=== PATIENT | male | born 1970 | race Caucasian/White ===

== ENCOUNTER 2019-01-13 05:36 | Inpatient (IN) | payer OTHER ==
[2019-01-13] VITALS (25 sets, daily range): BP systolic 98–180; BP diastolic 60–98; PULSE 65–112; RESP 11–21; Ht 188 cm; Wt 119.0 kg
[~2019-01-13] VITALS: Ht 188 cm; Wt 119.0 kg
[2019-01-13] MEDS ORDERED: VERAPAMIL 5 MG INJ ONE (06:11)
[2019-01-13] MEDS ORDERED: NITROGLYCERIN (IC) 100 MCG/ML INJ ONE (06:14)
[2019-01-13] MEDS ORDERED: TEMA30CA PO (06:55)
[2019-01-13] MEDS ORDERED: GELATIN SIZE 100 SPONGE ONE (06:55)
[2019-01-13] MEDS ORDERED: BUPIVACAINE 0.5%/EPI (SDV) 30 ML INJ ONE ×2 (06:55→10:53)
[2019-01-13] MEDS ORDERED: THROMBIN (BOVINE) 5,000 UNIT VIAL TP ONE (06:55)
[2019-01-13] MEDS ORDERED: CEFAZOLIN 1 GM INJ ONE ×2 (06:55→08:02)
[2019-01-13] MEDS ORDERED: HEPARIN 1000 UNITS/ML 10 ML INJ ONE (06:56)
[2019-01-13] MEDS ORDERED: DULO60CA59 PO (06:56)
[2019-01-13] MEDS ORDERED: SUMA50TA3 PO (06:56)
[2019-01-13] MEDS ORDERED: MIRT15TA5 PO (06:57)
[2019-01-13] MEDS ORDERED: HYDR-3980 PO (06:57)
[2019-01-13] MEDS ORDERED: BUTA1CAP38 PO (06:58)
[2019-01-13] MEDS ORDERED: TRAZ-111 PO (06:58)
[2019-01-13] MEDS ORDERED: DICL75TA2 PO (06:59)
[2019-01-13] MEDS ORDERED: PROPOFOL 200 MG INJ ONE (07:00)
--- NOTE | 2019-01-13 07:19 | PREAC ---
Date/Time of Note Date/Time of Note DATE: 01/13/19 TIME: 07:16 Anesthesia Eval and Record Evaluation Time Pre-Procedure Interview DATE: 01/13/19 TIME: 07:16 Age 48 Sex male NPO: 8 hrs Preoperative diagnosis L5 S1 spinal stenosis Planned procedure L5 S1 anterior and post instrumentation Past Medical History Past Medical History: Includes GI: Obesity Psych: Depression Surgery & Anesthesia Issues No known issue Meds Anticoagulation: No Beta Leon within 24 hr: No Reason Beta Leon not given: Pt. not on B-Leon Reported Medications Diclofenac Sodium* (Diclofenac Sodium*) 75 Mg Tablet.dr, 75 MG PO BID, #60 TAB 01/13/19 Trazodone Hcl* (Trazodone Hcl*) 50 Mg Tablet, 50 MG PO QHS, #30 TAB 01/13/19 Fpmdlrykaw-Uftoxziamunbu-Bbbhtiya* (Fioricet*) 50-300-40 Mg Capsule, 1 CAP PO Q4H PRN for HEADACHE, CAP 01/13/19 Mirtazapine* (Mirtazapine*) 15 Mg Tablet, 15 MG PO HS, TAB 01/13/19 Hydrocodone/Acetaminophen (Otis 10-325 Tablet) 1 Each Tablet, 1 EACH PO Q6 PRN for PAIN, TAB 01/13/19 Sumatriptan Succinate* (Sumatriptan Succinate*) 50 Mg Tablet, 50 MG PO BID PRN for MIGRAINE HEADACHE, TAB May repeat after 2 hours if needed; MAX 200 mg/24 hours 01/13/19 Duloxetine Hcl* (Duloxetine Hcl*) 60 Mg Capsule.dr, 60 MG PO DAILY, #30 CAP 01/13/19 Temazepam* (Temazepam*) 30 Mg Capsule, 30 MG PO HS PRN for INSOMNIA, CAP 01/13/19 Meds reviewed: Yes Allergies Coded Allergies: No Known Allergy (Unverified , 01/13/19) Allergies Reviewed: Yes Labs/Studies Labs Reviewed: Reviewed by anesthesiologist Blood Bank Test 01/13/19 00:00 01/13/19 06:10 Blood Product Summary Counts Blood Type O POSITIVE test: N/A Studies: ECG (sr), CXR (nl) Pre-procedure Exam Last vitals Vital Signs Date Temp Pulse Resp B/P (MAP) Pulse Ox O2 O2 Flow FiO2 Time Delivery Rate 01/13/19 98.4 65 18 111/70 98 06:39 (84) Airway: Adequate mouth opening Mallampati: Mallampati II Teeth: Normal Lung: Normal Heart: Normal ASA Physical Status ASA physical status: 1 Emergency: None Planned Anesthetic General/MAC: ETT Nerve block: TAP (bilateral) Planned Pain Management Parenteral pain med Pre-operative Attestations Prior to commencing anesthesia and surgery, the patient was re-evaluated, there was verification of: *The patient's identity *The results of appropriate recent lab work and preoperative vital signs *The above evaluation not changing prior to induction *Anesthetic plan, risk benefits, alternative and complications discussed with patient/family; questions answered; patient/family understands, accepts and wishes to proceed. NATALYA SANTORO MD Jan 13, 2019 07:19
--- NOTE | 2019-01-13 07:20 | HPN ---
Date/Time of Note Date/Time of Note DATE: 01/13/19 TIME: 07:20 Interval H&P Admission Note Pt. seen H&P reviewed: No system changes VIRGINIA TRAORE MD Jan 13, 2019 07:20
[2019-01-13] MEDS ORDERED: ONDANSETRON 4 MG INJ ONE (07:26)
[2019-01-13] MEDS ORDERED: MIDAZOLAM 1 MG/ML 2 ML INJ ONE (07:26)
[2019-01-13] MEDS ORDERED: PROPOFOL 20 ML ONE (07:26)
[2019-01-13] MEDS ORDERED: METOCLOPRAMIDE 10 MG INJ ONE (07:26)
[2019-01-13] MEDS ORDERED: ROCURONIUM 50 MG INJ ONE ×2 (07:26→08:15)
[2019-01-13] MEDS ORDERED: MEPERIDINE 25 MG INJ IV PRN (07:30)
[2019-01-13] MEDS ORDERED: ONDANSETRON 4 MG INJ IV PRN ×3 (07:30→13:30)
[2019-01-13] MEDS ORDERED: HYDROmorphONE 1 MG/5 ML IV SYRINGE IV PRN ×5 (07:30→13:30)
[2019-01-13] MEDS ORDERED: FENTAnyl 50 MCG/ML VIAL IV PRN ×3 (07:30)
[2019-01-13] MEDS ORDERED: DIPHENHYDRAMINE 50 MG INJ IV PRN (07:30)
[2019-01-13] MEDS ORDERED: FENTAnyl 50 MCG/ML VIAL ONE ×2 (07:33→11:00)
[2019-01-13] MEDS ORDERED: DEXAMETHASONE 4 MG/ML 5 ML INJ ONE (07:46)
[2019-01-13] MEDS ORDERED: HYDROmorphONE 2 MG/ML SYG ONE (08:28)
[2019-01-13] MEDS ORDERED: ROPIVACAINE 0.5 % 30 ML VIAL ONE (09:33)
--- NOTE | 2019-01-13 10:13 | OPR ---
DATE OF OPERATION: 01/13/2019 PREOPERATIVE DIAGNOSIS: Degenerative disk disease, lumbosacral spine. POSTOPERATIVE DIAGNOSIS: Degenerative disk disease, lumbosacral spine. OPERATION PERFORMED: Anterior retroperitoneal exposure interbody fusion lumbosacral spine, L5-S1. SURGEON: Albertina Gomez MD. CO-SURGEON: Dr. Traore. ESTIMATED BLOOD LOSS: Dr. Traore . INFORMED CONSENT: Risks, benefits, complications, alternative therapies explained to the patient, co nsent obtained. Risks and benefits that were explained to the patient included but not limited to bl eeding, infection, damage to bowel, damage to ureter, wound infection, wound dehiscence, DVT, PE, los s of limb, loss of life, DVT, need for further surgeries, retrograde ejaculation, sexual dysfunction, high-risk nature of the operation fully explained and stressed to the patient. All questions answer ed. OPERATIVE TECHNIQUE: Patient was placed in supine position, prepped and draped in usual sterile fash ion. Timeout was called and antibiotics were given. I made an 8 cm incision in the left lower quadr ant. Incision was taken down to subcutaneous tissue which was then opened using electrocautery. Lef t anterior rectus sheath was opened in the direction of the wound. The retroperitoneal space was ent ered. I applied a Bookwalter retractor, retracting the bowel contents to the right, left rectus musc le to the left. I dissected the left common iliac artery and vein, external iliac artery and vein, m iddle sacral vessels ligated using titanium clips. Exposure for L5-S1 was obtained between the right and left common iliac artery and vein. We proceeded with diskectomy and placement of the new cage. Please refer to Dr. Traore's dictations for the details of that operation. After all the x-rays were satisfactory read by Dr. Traore, needle counts and sponge count was correct. The wound was i rrigated using antibiotic solution. The anterior rectus sheath was closed using a #1 Vicryl suture i n a running fashion. The wound was irrigated again and closed in 2 layers of 2-0 Vicryl suture for s ubcutaneous and Steri-Strips for the skin. The patient tolerated the procedure well. Dictated By: ALBERTINA GOMEZ MD FM/NTS Conf#: [id number] [facility]#: [id number] CC: VIRGINIA TRAORE MD;*[facility]*
--- NOTE | 2019-01-13 12:33 | OPR ---
Date/Time of Note Date/Time of Note DATE: 01/13/19 TIME: 12:25 Operative Report Free Text/Dictation DATE OF OPERATION: 01/13/2019 PREOPERATIVE DIAGNOSES: 1. L5-S1 Isthmic Spondylolisthesis with severe bilateral foraminal stenosis and L5 radiculopathy 2. Obesity BMI 34 kg/m2 POSTOPERATIVE DIAGNOSES: 1. L5-S1 Isthmic Spondylolisthesis with severe bilateral foraminal stenosis and L5 radiculopathy 2. Obesity BMI 34 kg/m2 OPERATION PERFORMED: 1. Anterior lumbar interbody fusion via retroperitoneal approach L5-S1 2. Placement of anterior interbody device L5-S1 3. Placement of posterior spinal segmental instrumentation L5-S1 4. Posterior spinal fusion L5-S1 5. Use of morselized allograft bone and small BMP 6. Interpretation of neuromonitoring INSTRUMENTATION: 1. Synfix Amadou Stand alone PEEK Cage 13.5mm height x 36mm Widthx 31 mmAP / 14 degrees lordosis 2. 4.0mm self drilling screws 25mm length x 4 3. Small BMP with use of morselized allograft bone 4. NuVasive Reline MAS system percutaneous screws: L5 6.5 x 45mm x 2; S1-6.5 x 40mm x 2 5. 45mm rods x 2; set screws x 4 ANAESTHESIA: General Endotracheal ESTIMATED BLOOD LOSS: 250 mL COMPLICATIONS: None SURGEON: Virginia Traore MD VASCULAR ACCESS SURGEON: Zach Medina MD SURGICAL INDICATION: The patient is a 48 year-old male who presents with an incr easing history of back and leg pain with weakness. The patient was found to have an unstable spondylolisthesis at L5-S1 with associated stenosis. The patient had failed conservative treatments. Risks, benefits and alternatives to an anterior and posterior spinal fusion with instrumentation were explained to the patient including but not exclusive of bleeding, infection, visceral injury, nerve injury, nonunion, instrumentation failure, lack of symptom relief, myocardial infarction, stroke, and pulmonary embolism, and they wished to proceed. PROCEDURE IN DETAIL: The patient was identified in the preoperative area and taken to the operating room. Rapid induction of general endotracheal anesthesia was performed. A time out was held. Patient was given 2 g of cefazolin for prophylaxis. The patient was positioned in the supine position on the operative table. All bony prominences were well padded. The patient's abdomen and left flank were prepped and draped in the usual sterile fashion. A transverse skin incision was made at the L5-S1 level by our vascular surgeon Dr. Medina. After the exposure was completed, I performed a L5-S1 diskectomy. The disc was incised using a sharp 15 mm blade. I then used a dang elevator to loosen the disk material from the superior and inferior endplates. I then used a rongeur to remove the disc material and a series of curved and straight curettes to evacuate the disc space. I also used a series of pituitaries and kerrisons to ensure appropriate end plate preparation. Attention was placed to ensure removal of disk material to bleeding endplates without violation of the endplate. I then used the trial rasps to prepare and size the disc space and was able to place a 13.5 mm spacer with 14 degrees of lordosis. To ensure appropriate sizing of the inplant, I checked for fit and placement under C arm control and I felt the 14 degree lordotic 13.5 mm cage gained good lordosis and muslim of disc height and was an appropriate fit. I also ensured appropriate reduction of the spondylolisthesis. I then inserted the Synfix PEEK 13.5mm cage after the trail. This cage was filled with a small BMP and morselized bone allograft. Four locking screws (4.0 x 25mm) were then placed using the guide under fluoroscopy . Additional morselized allograft was placed around and anterior to the cage in the disc space. The wound was irrigated. X-rays were taken to check for instruments. The wound was then closed by our vascular access surgeon in standard technique. The posterior rectus sheath and anterior rectus sheath were both repaired. Sterile dressing was then placed. Due to the patients morbid obesity (BMI 34 kg/m2) anterior and posterior exposure for this patient took an additional 45 minutes. Attention was then turned toward placement of posterior spinal segmental instrumentation at L5-S1 after the patient was flipped carefully to the prone position. All bony prominences were well padded. The patient's lumbar spine was then prepped and draped in sterile fashion. Using intraoperative fluoroscopy, the pedicles were identified at each level. Care was taken to alter the fluoroscopic view to have a true AP and lateral at each level. Jamshidi needles were then passed down to the lateral aspect of the pedicles through stab incisions. The Jamshidi needles were malleted into the pedicles. These were also performed under EMG guidance. Care was taken to ensure that the needles did not pass the medial wall of the pedicle on the AP view prior to checking that the needle was past the posterior wall of the vertebral body. The needles were then malleted further into the vertebral bodies themselves. Guidewires were passed through the needles and the needles were removed. Taps were applied over the guidewires. Screws were then placed bilaterally into the vertebral bodies. AP and lateral views confirmed appropriate placement of the instrumentation. Attention was turned toward the posterior spinal fusion at L5-S1. Rods were selected of the appropriate length and placed into the screw heads. End caps were applied and final tightening was performed using a [id number] wrench. The exposed the facet joints were decorticated. A small remaining amount of allograft was placed into the facet joints to facilitate the posterior fusion. The wound was irrigated copiously using normal saline. The fascia was then closed using 1 Vicryl in interrupted fashion. Subcutaneous tissue was closed using 2-0 Vicryl in interrupted fashion. Skin was closed using a running 4-0 Monocryl stitch. The wounds were dressed using Dermabond, sterile gauze and Tegaderm. The patient was returned to the supine position. The patient was extubated immediately postoperatively and taken to the recovery room in stable condition. Patient tolerated the procedure well and left the operating room in stable condition. Procedure Date: Jan 13, 2019 Preoperative Diagnosis 1. L5-S1 Isthmic Spondylolisthesis with severe bilateral foraminal stenosis and L5 radiculopathy 2. Obesity BMI 34 kg/m2 Postoperative Diagnosis 1. L5-S1 Isthmic Spondylolisthesis with severe bilateral foraminal stenosis and L5 radiculopathy 2. Obesity BMI 34 kg/m2 Operation/Procedure Performed 1. Anterior lumbar interbody fusion via retroperitoneal approach L5-S1 2. Placement of anterior interbody device L5-S1 3. Placement of posterior spinal segmental instrumentation L5-S1 4. Posterior spinal fusion L5-S1 5. Use of morselized allograft bone and small BMP 6. Interpretation of neuromonitoring Surgeon see signature line Metal Coater Operator Anterior approach: Zach Reyes MD Anesthesia Type: general Estimated Blood Loss: 200 - 250 ml's Transfusion none Specimen none Grafts/Implants 1. Synfix Amadou Stand alone PEEK Cage 13.5mm height x 36mm Widthx 31 mmAP / 14 degrees lordosis 2. 4.0mm self drilling screws 25mm length x 4 3. Small BMP with use of morselized allograft bone 4. NuVasive Reline MAS system percutaneous screws: L5 6.5 x 45mm x 2; S1-6.5 x 40mm x 2 5. 45mm rods x 2; set screws x 4 Complications none Pt Condition Post Procedure: stable Disposition: PACU Procedure Description PROCEDURE IN DETAIL: The patient was identified in the preoperative area and taken to the operating room. Rapid induction of general endotracheal anesthesia was performed. A time out was held. Patient was given 2 g of cefazolin for prophylaxis. The patient was positioned in the supine position on the operative table. All bony prominences were well padded. The patient's abdomen and left flank were prepped and draped in the usual sterile fashion. A transverse skin incision was made at the L5-S1 level by our vascular surgeon Dr. Medina. After the exposure was completed, I performed a L5-S1 diskectomy. The disc was incised using a sharp 15 mm blade. I then used a dang elevator to loosen the disk material from the superior and inferior endplates. I then used a rongeur to remove the disc material and a series of curved and straight curettes to evacuate the disc space. I also used a series of pituitaries and kerrisons to ensure appropriate end plate preparation. Attention was placed to ensure removal of disk material to bleeding endplates without violation of the endplate. I then used the trial rasps to prepare and size the disc space and was able to place a 13.5 mm spacer with 14 degrees of lordosis. To ensure appropriate sizing of the inplant, I checked for fit and placement under C arm control and I felt the 14 degree lordotic 13.5 mm cage gained good lordosis and muslim of disc height and was an appropriate fit. I also ensured appropriate reduction of the spondylolisthesis. I then inserted the Synfix PEEK 13.5mm cage after the trail. This cage was filled with a small BMP and morselized bone allograft. Four locking screws (4.0 x 25mm) were then placed using the guide under fluoroscopy . Additional morselized allograft was placed around and anterior to the cage in the disc space. The wound was irrigated. X-rays were taken to check for instruments. The wound was then closed by our vascular access surgeon in standard technique. The posterior rectus sheath and anterior rectus sheath were both repaired. Sterile dressing was then placed. Due to the patients morbid obesity (BMI 34 kg/m2) anterior and posterior exposure for this patient took an additional 45 minutes. Attention was then turned toward placement of posterior spinal segmental instrumentation at L5-S1 after the patient was flipped carefully to the prone position. All bony prominences were well padded. The patient's lumbar spine was then prepped and draped in sterile fashion. Using intraoperative fluoroscopy, the pedicles were identified at each level. Care was taken to alter the fluoroscopic view to have a true AP and lateral at each level. Jamshidi needles were then passed down to the lateral aspect of the pedicles through stab incisions. The Jamshidi needles were malleted into the pedicles. These were also performed under EMG guidance. Care was taken to ensure that the needles did not pass the medial wall of the pedicle on the AP view prior to checking that the needle was past the posterior wall of the vertebral body. The needles were then malleted further into the vertebral bodies themselves. Guidewires were passed through the needles and the needles were removed. Taps were applied over the guidewires. Screws were then placed bilaterally into the vertebral bodies. AP and lateral views confirmed appropriate placement of the instrumentation. Attention was turned toward the posterior spinal fusion at L5-S1. Rods were selected of the appropriate length and placed into the screw heads. End caps were applied and final tightening was performed using a [id number] wrench. The exposed the facet joints were decorticated. A small remaining amount of allograft was placed into the facet joints to facilitate the posterior fu nat. The wound was irrigated copiously using normal saline. The fascia was then closed using 1 Vicryl in interrupted fashion. Subcutaneous tissue was closed using 2-0 Vicryl in interrupted fashion. Skin was closed using a running 4-0 Monocryl stitch. The wounds were dressed using Dermabond, sterile gauze and Tegaderm. The patient was returned to the supine position. The patient was extubated immediately postoperatively and taken to the recovery room in stable condition. Patient tolerated the procedure well and left the operating room in stable condition. VIRGINIA TRAORE MD Jan 13, 2019 12:33
[2019-01-13] MEDS ORDERED: SUCCINYLCHOLINE CHLORIDE 100 MG/5 ML SYG IV ONE (12:45)
[2019-01-13] MEDS ORDERED: ACETAMINOPHEN 325 MG TAB PO PRN (13:00)
[2019-01-13] MEDS ORDERED: NALOXONE (0.4 MG/ML) INJ IV PRN (13:00)
[2019-01-13] MEDS ORDERED: NACL 0.9% 3 ML SYG IV SCH (13:00)
[2019-01-13] MEDS ORDERED: PROCHLORPERAZINE 10 MG TAB PO PRN (13:00)
[2019-01-13] MEDS ORDERED: AL HYDROX/MG HYDROX/SIMETH 30 ML CUP PO PRN (13:00)
[2019-01-13] MEDS ORDERED: HYDROCODONE/APAP (5/325) TAB PO PRN (13:00)
[2019-01-13] MEDS: HYDROmorphONE 0.2 MG/ML PCA IV SCH ×2 (13:18→19:45)
[2019-01-13] MEDS ORDERED: KETOROLAC 15 MG INJ IV PRN (13:30)
[2019-01-13] MEDS: CEFAZOLIN 1 GM/50 ML (PMX) 50 ML IVPB SCH ×2 (17:53→23:48)
--- NOTE | 2019-01-13 18:22 | CONS ---
Assessment/Plan Assessment/Plan Assessment/Plan (Daily) Consult dict Post op lumbar back surg with hx mood disorder prior knee surg and related dvt (will rev this with him again tombaldomero). Consultation Date/Type/Reason Admit Date/Time Jan 13, 2019 at 05:36 Date/Time of Note DATE: 01/13/19 TIME: 18:21 Past Medical History Home Meds Reported Medications Diclofenac Sodium* (Diclofenac Sodium*) 75 Mg Tablet., 75 MG PO BID, #60 TAB 01/13/19 Trazodone Hcl* (Trazodone Hcl*) 50 Mg Tablet, 50 MG PO QHS, #30 TAB 01/13/19 Fzejmyaxwc-Rswponghksial-Qdegjpzd* (Fioricet*) 50-300-40 Mg Capsule, 1 CAP PO Q4H PRN for HEADACHE, CAP 01/13/19 Mirtazapine* (Mirtazapine*) 15 Mg Tablet, 15 MG PO HS, TAB 01/13/19 Hydrocodone/Acetaminophen ([place] 10-325 Tablet) 1 Each Tablet, 1 EACH PO Q6 PRN for PAIN, TAB 01/13/19 Sumatriptan Succinate* (Sumatriptan Succinate*) 50 Mg Tablet, 50 MG PO BID PRN for MIGRAINE HEADACHE, TAB May repeat after 2 hours if needed; MAX 200 mg/24 hours 01/13/19 Duloxetine Hcl* (Duloxetine Hcl*) 60 Mg Capsule.dr, 60 MG PO DAILY, #30 CAP 01/13/19 Temazepam* (Temazepam*) 30 Mg Capsule, 30 MG PO HS PRN for INSOMNIA, CAP 01/13/19 Medications Current Medications Hydromorphone HCl (Dilaudid) 0.2 mg PACU PRN IV MILD PAIN 1-3; Start 01/13/19 at 07:30; Stop 01/13/19 at 19:00 Hydromorphone HCl (Dilaudid) 0.4 mg PACU PRN IV MOD PAIN 4-6; Start 01/13/19 at 07:30; Stop 01/13/19 at 19:00 Hydromorphone HCl (Dilaudid) 0.6 mg PACU PRN IV SEVERE PAIN 7-10; Start 01/13/19 at 07:30; Stop 01/13/19 at 19:00 Fentanyl (Sublimaze) 25 mcg PACU ORDER PRN IV MILD PAIN 1-3; Start 01/13/19 at 07:30; Stop 01/13/19 at 19:00 Fentanyl (Sublimaze) 50 mcg PACU ORDER PRN IV MOD PAIN 4-6 Last administered on 01/13/19at 13:10; Admin Dose 50 MCG; Start 01/13/19 at 07:30; Stop 01/13/19 at 19:00 Fentanyl (Sublimaze) 75 mcg PACU ORDER PRN IV SEVERE PAIN 7-10; Start 01/13/19 at 07:30; Stop 01/13/19 at 19:00 Ondansetron HCl (Zofran Inj) 4 mg PACU ORDER PRN IV NAUSEA/VOMITING Last administered on 01/13/19at 13:10; Admin Dose 4 MG; Start 01/13/19 at 07:30; Stop 01/13/19 at 19:00 Meperidine HCl (Demerol) 25 mg PACU ORDER PRN IV .RIGORS; Start 01/13/19 at 07:30; Stop 01/13/19 at 19:00 Diphenhydramine HCl (Benadryl) 25 mg PACU ORDER PRN IV .PRURITUS; Start 01/13/19 at 07:30; Stop 01/13/19 at 19:00 Acetaminophen/ Hydrocodone Bitart ([place] (5/325)) 1 tab Q4H PRN PO .PAIN 1-5; Start 01/13/19 at 13:00 Acetaminophen/ Hydrocodone Bitart ([place] (5/325)) 2 tab Q4H PRN PO .PAIN 6-10; Start 01/13/19 at 13:00 Cefazolin Sodium 50 ml @ 100 mls/hr Q6 IVPB Last administered on 01/13/19at 17:53; Admin Dose 100 MLS/HR; Start 01/13/19 at 18:00; Stop 01/14/19 at 12:29 Prochlorperazine (Compazine) 10 mg Q4H PRN PO NAUSEA/VOMITING; Start 01/13/19 at 13:00 Ondansetron HCl (Zofran Inj) 4 mg Q6H PRN IV NAUSEA/VOMITING; Start 01/13/19 at 13:00 Al Hydrox/Mg Hydrox/Simethicone (Mag-Al Plus) 15 ml Q4H PRN PO .CONSTIPATION; Start 01/13/19 at 13:00 Docusate Sodium (Colace) 100 mg BID PO ; Start 01/14/19 at 09:00 Acetaminophen (Tylenol Tab) 650 mg Q4H PRN PO TEMP GREATER THAN 101F OR CLARKE; Start 01/13/19 at 13:00 IV Flush (NS 3 ml) 3 ml PER PROTOCOL IV ; Start 01/13/19 at 13:00 Hydromorphone HCl (Dilaudid HOUSEKEEPING LEAD) Q4PCA IV Last administered on 01/13/19at 13:18; Admin Dose 6 MG; Start 01/13/19 at 13:00 Naloxone HCl (Narcan) 0.2 mg Q2M PRN IV RR 8 BREATHS/MIN OR LESS; Start 01/13/19 at 13:00 Hydromorphone HCl (Dilaudid) 0.2 mg PACU PRN IV MILD PAIN 1-3; Start 01/13/19 at 13:30; Stop 01/13/19 at 20:00 Hydromorphone HCl (Dilaudid) 0.4 mg PACU PRN IV MOD PAIN 4-6; Start 01/13/19 at 13:30; Stop 01/13/19 at 20:00 Ketorolac Tromethamine (Toradol) 15 mg PACU ORDER PRN IV FOR PAIN AFTER IV NARCOTIC MED; Start 01/13/19 at 13:30; Stop 01/13/19 at 20:00 Ondansetron HCl (Zofran Inj) 4 mg PACU ORDER PRN IV NAUSEA/VOMITING; Start 01/13/19 at 13:30; Stop 01/13/19 at 20:00 Acetaminophen/ Butalbital/ Caffeine (Fioricet) 1 tab Q4H PRN PO HEADACHE; Start 01/13/19 at 18:30; Status UNV Duloxetine HCl (Cymbalta) 60 mg DAILY PO ; Start 01/14/19 at 09:00; Status UNV Mirtazapine (Remeron) 15 mg HS PO ; Start 01/13/19 at 21:00; Status UNV Sumatriptan Succinate (Imitrex) 50 mg BID PRN PO MIGRAINE HEADACHE; Start 01/13/19 at 18:30; Status UNV Trazodone HCl (Desyrel) 50 mg QHS PO ; Start 01/13/19 at 21:00; Status UNV Allergies: Coded Allergies: No Known Allergy (Unverified , 01/13/19) Social History Smoking Status: Never smoker Exam/Review of Systems Exam Vitals Vital Signs Date Temp Pulse Resp B/P (MAP) Pulse Ox O2 O2 Flow FiO2 Time Delivery Rate 01/13/19 98.3 102 16 112/72 99 Room Air 17:39 (85) 01/13/19 2.0 15:15 Medications Medication Current Medications Hydromorphone HCl (Dilaudid) 0.2 mg PACU PRN IV MILD PAIN 1-3; Start 01/13/19 at 07:30; Stop 01/13/19 at 19:00 Hydromorphone HCl (Dilaudid) 0.4 mg PACU PRN IV MOD PAIN 4-6; Start 01/13/19 at 07:30; Stop 01/13/19 at 19:00 Hydromorphone HCl (Dilaudid) 0.6 mg PACU PRN IV SEVERE PAIN 7-10; Start 01/13/19 at 07:30; Stop 01/13/19 at 19:00 Fentanyl (Sublimaze) 25 mcg PACU ORDER PRN IV MILD PAIN 1-3; Start 01/13/19 at 07:30; Stop 01/13/19 at 19:00 Fentanyl (Sublimaze) 50 mcg PACU ORDER PRN IV MOD PAIN 4-6 Last administered on 01/13/19at 13:10; Admin Dose 50 MCG; Start 01/13/19 at 07:30; Stop 01/13/19 at 19:00 Fentanyl (Sublimaze) 75 mcg PACU ORDER PRN IV SEVERE PAIN 7-10; Start 01/13/19 at 07:30; Stop 01/13/19 at 19:00 Ondansetron HCl (Zofran Inj) 4 mg PACU ORDER PRN IV NAUSEA/VOMITING Last admin istered on 01/13/19at 13:10; Admin Dose 4 MG; Start 01/13/19 at 07:30; Stop 01/13/19 at 19:00 Meperidine HCl (Demerol) 25 mg PACU ORDER PRN IV .RIGORS; Start 01/13/19 at 07:30; Stop 01/13/19 at 19:00 Diphenhydramine HCl (Benadryl) 25 mg PACU ORDER PRN IV .PRURITUS; Start 01/13/19 at 07:30; Stop 01/13/19 at 19:00 Acetaminophen/ Hydrocodone Bitart ([place] (5/325)) 1 tab Q4H PRN PO .PAIN 1-5; Start 01/13/19 at 13:00 Acetaminophen/ Hydrocodone Bitart ([place] (5/325)) 2 tab Q4H PRN PO .PAIN 6-10; Start 01/13/19 at 13:00 Cefazolin Sodium 50 ml @ 100 mls/hr Q6 IVPB Last administered on 01/13/19at 17:53; Admin Dose 100 MLS/HR; Start 01/13/19 at 18:00; Stop 01/14/19 at 12:29 Prochlorperazine (Compazine) 10 mg Q4H PRN PO NAUSEA/VOMITING; Start 01/13/19 at 13:00 Ondansetron HCl (Zofran Inj) 4 mg Q6H PRN IV NAUSEA/VOMITING; Start 01/13/19 at 13:00 Al Hydrox/Mg Hydrox/Simethicone (Mag-Al Plus) 15 ml Q4H PRN PO .CONSTIPATION; Start 01/13/19 at 13:00 Docusate Sodium (Colace) 100 mg BID PO ; Start 01/14/19 at 09:00 Acetaminophen (Tylenol Tab) 650 mg Q4H PRN PO TEMP GREATER THAN 101F OR CLARKE; Start 01/13/19 at 13:00 IV Flush (NS 3 ml) 3 ml PER PROTOCOL IV ; Start 01/13/19 at 13:00 Hydromorphone HCl (Dilaudid HOUSEKEEPING LEAD) Q4PCA IV Last administered on 01/13/19at 13:18; Admin Dose 6 MG; Start 01/13/19 at 13:00 Naloxone HCl (Narcan) 0.2 mg Q2M PRN IV RR 8 BREATHS/MIN OR LESS; Start 01/13/19 at 13:00 Hydromorphone HCl (Dilaudid) 0.2 mg PACU PRN IV MILD PAIN 1-3; Start 01/13/19 at 13:30; Stop 01/13/19 at 20:00 Hydromorphone HCl (Dilaudid) 0.4 mg PACU PRN IV MOD PAIN 4-6; Start 01/13/19 at 13:30; Stop 01/13/19 at 20:00 Ketorolac Tromethamine (Toradol) 15 mg PACU ORDER PRN IV FOR PAIN AFTER IV NARCOTIC MED; Start 01/13/19 at 13:30; Stop 01/13/19 at 20:00 Ondansetron HCl (Zofran Inj) 4 mg PACU ORDER PRN IV NAUSEA/VOMITING; Start 01/13/19 at 13:30; Stop 01/13/19 at 20:00 Acetaminophen/ Butalbital/ Caffeine (Fioricet) 1 tab Q4H PRN PO HEADACHE; Start 01/13/19 at 18:30; Status UNV Duloxetine HCl (Cymbalta) 60 mg DAILY PO ; Start 01/14/19 at 09:00; Status UNV Mirtazapine (Remeron) 15 mg HS PO ; Start 01/13/19 at 21:00; Status UNV Sumatriptan Succinate (Imitrex) 50 mg BID PRN PO MIGRAINE HEADACHE; Start 01/13/19 at 18:30; Status UNV Trazodone HCl (Desyrel) 50 mg QHS PO ; Start 01/13/19 at 21:00; Status UNV SUNG PRIETO MD Jan 13, 2019 18:22
[2019-01-13] MEDS ORDERED: SUMATRIPTAN 50 MG TAB PO PRN (18:30)
[2019-01-13] MEDS ORDERED: ZOLPIDEM 5 MG TAB PO PRN (18:30)
[2019-01-13] MEDS ORDERED: ACET/BUTAL/CAFF TAB PO PRN (18:30)
--- NOTE | 2019-01-13 19:45 | CONS ---
DATE OF ADMISSION: 01/13/2019 DATE OF CONSULTATION: 01/13/2019 Thank you very much for allowing me to evaluate this 48-year-old male who just underwent lumbar back surgery. 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 Subsequent to the same, he underwent physical therapy and "injections ." In 2014, he received an epidural block and radiofrequency ablation. Because of continued pain, [facility] was ultimately referred to you in 11/2018 and he had evidence at the time of an L5 to S1 spondyloli sthesis with bilateral foraminal stenosis and L5 radiculopathy. Because of diffuse weakness of his l ower extremities and evidence of moderate bilateral L5 radiculopathy and persistence of pain, he elec delisa to proceed with surgery. Postoperatively, he has modest back pain. Denies cough, wheezing, shor tness of breath, nausea, vomiting, shortness of breath. Has mild abdominal pain. MEDICATIONS PRIOR TO ADMISSION: Include: 1. [place]. 2. Gabapentin. PRIOR SURGERIES: Include left knee and gastric bypass. PAST MEDICAL HISTORY: No history of diabetes, coronary artery disease, peptic ulcer disease or phleb itis. FAMILY HISTORY: Positive for high blood pressure and diabetes. SOCIAL HISTORY: He is a nonsmoker, occasionally drinks alcohol. PHYSICAL EXAMINATION: GENERAL: [place] male in no acute distress. VITAL SIGNS: BP 128/80, pulse 72, respirations are 20, he was afebrile. HEENT: Eyes: Extraocular muscles were full. Nose, mouth and throat are normal. NECK: Supple. There was no jugular venous distention, thyroid enlargement or adenopathy. Carotids are 2+. No bruits. LUNGS: Clear. HEART: Rhythm regular. No murmur. ABDOMEN: Nontender. Liver and spleen were not palpable. No mass or tenderness were noted. EXTREMITIES: No edema. Calves are nontender. NEUROLOGIC: No lateralizing motor weakness. IMPRESSION: 1. Stable postop lumbar back surgery. 2. We will evaluate daily for signs and symptoms of thromboembolic disease. We will follow with you . Dictated By: SUNG PRIETO MD MR/NTS Conf#: [id number] DID#: [id number] CC: VIRGINIA TRAORE MD;*EndCC*
[2019-01-13] MEDS: traZODone 50 MG TAB PO SCH (20:53)
[2019-01-13] MEDS: MIRTAZAPINE 15 MG TAB PO SCH (20:53)
[2019-01-14 00:19] VITALS: BP 132/80; PULSE 72; RESP 18
[2019-01-14] MEDS: CEFAZOLIN 1 GM/50 ML (PMX) 50 ML IVPB SCH ×2 (05:21→11:49)
[2019-01-14 05:33] VITALS: BP 110/72; PULSE 80; RESP 20
[2019-01-14] MEDS: HYDROmorphONE 0.2 MG/ML PCA IV SCH (06:12)
[2019-01-14 07:30] VITALS: BP 115/77; PULSE 71; RESP 14
--- NOTE | 2019-01-14 07:34 | PAC ---
Date/Time of Note Date/Time of Note DATE: 01/14/19 TIME: 07:34 Post-Anesthesia Notes Post-Anesthesia Note Last documented vital signs Vital Signs Date Temp Pulse Resp B/P (MAP) Pulse Ox O2 O2 Flow FiO2 Time Delivery Rate 01/14/19 98.2 71 14 115/77 99 Nasal 07:30 (90) Cannula 01/13/19 2.0 20:15 Activity: WNL Respiratory function: WNL Cardiovascular function: WNL Mental status: Baseline Pain reasonably controlled: Yes Hydration appropriate: Yes Nausea/Vomiting absent: No NATALYA SANTORO MD Jan 14, 2019 07:34
[2019-01-14] MEDS: DOCUSATE SODIUM 100 MG CAP PO SCH ×2 (08:21→20:43)
[2019-01-14] MEDS: DULOXETINE 30 MG CAP DR PO SCH (08:21)
--- NOTE | 2019-01-14 08:49 | CONS ---
Assessment/Plan Assessment/Plan Assessment/Plan (Daily) 1. Doing very well post op lumbar back surgery 2. Hx dvt 4 yrs ago post op knee, will be important to mobilize blade and start asa when ok with ortho 3. Mood disorder, meds pre admit resumed Consultation Date/Type/Reason Admit Date/Time Jan 13, 2019 at 05:36 Initial Consult Date Date/Time of Note DATE: 01/14/19 TIME: 08:47 Detailed Summary Cardiovascular: No chest pain, No orthopenea Gastrointestinal: pain (mild) Genitourinary: other (hartley in place) Musculoskeletal: back pain (moderate) Exam/Review of Systems Exam Vitals Vital Signs Date Temp Pulse Resp B/P (MAP) Pulse Ox O2 O2 Flow FiO2 Time Delivery Rate 01/14/19 98.2 71 14 115/77 99 Nasal 07:30 (90) Cannula 01/13/19 2.0 20:15 Intake and Output 01/13/19 01/13/19 01/14/19 1515:00 23:00 07:00 IntakeIntake Total 1760 ml 175 ml 800 ml OutputOutput Total 900 ml 3600 ml BalanceBalance 860 ml 175 ml -2800 ml Neck: No jvd Respiratory: clear to auscultation Cardiovascular: regular rate and rhythm Gastrointestinal: tender (mild) Genitourinary - Male: other Extremities: No edema Results Result Diagram: 01/14/19 0436 01/14/19 0436 Results 24hrs Laboratory Tests Test 01/14/19 04:36 01/14/19 07:29 Hemoglobin 12.0 L Hematocrit 36.9 L Sodium Level 141 Potassium Level 4.4 Chloride Level 103 Carbon Dioxide Level 30 Anion Gap 8 Blood Urea Nitrogen 13 Creatinine 0.85 Est Glomerular Filtrat Rate mL/min > 60 Glucose Level 128 Calcium Level 9.3 Lab Scanned Report REFERENCE LAB Medications Medication Current Medications Acetaminophen/ Hydrocodone Bitart ([place] (5/325)) 1 tab Q4H PRN PO .PAIN 1-5; Start 01/13/19 at 13:00 Acetaminophen/ Hydrocodone Bitart ([place] (5/325)) 2 tab Q4H PRN PO .PAIN 6-10; Start 01/13/19 at 13:00 Cefazolin Sodium 50 ml @ 100 mls/hr Q6 IVPB Last administered on 01/14/19at 05:21; Admin Dose 100 MLS/HR; Start 01/13/19 at 18:00; Stop 01/14/19 at 12:29 Prochlorperazine (Compazine) 10 mg Q4H PRN PO NAUSEA/VOMITING; Start 01/13/19 at 13:00 Ondansetron HCl (Zofran Inj) 4 mg Q6H PRN IV NAUSEA/VOMITING; Start 01/13/19 at 13:00 Al Hydrox/Mg Hydrox/Simethicone (Mag-Al Plus) 15 ml Q4H PRN PO .CONSTIPATION; Start 01/13/19 at 13:00 Docusate Sodium (Colace) 100 mg BID PO Last administered on 01/14/19at 08:21; Admin Dose 100 MG; Start 01/14/19 at 09:00 Acetaminophen (Tylenol Tab) 650 mg Q4H PRN PO TEMP GREATER THAN 101F OR CLARKE; Start 01/13/19 at 13:00 IV Flush (NS 3 ml) 3 ml PER PROTOCOL IV ; Start 01/13/19 at 13:00 Hydromorphone HCl (Dilaudid CONE CLEANER) Q4PCA IV Last administered on 01/14/19at 06:12; Admin Dose 6 MG; Start 01/13/19 at 13:00 Naloxone HCl (Narcan) 0.2 mg Q2M PRN IV RR 8 BREATHS/MIN OR LESS; Start 01/13/19 at 13:00 Acetaminophen/ Butalbital/ Caffeine (Fioricet) 1 tab Q4H PRN PO HEADACHE; Start 01/13/19 at 18:30 Duloxetine HCl (Cymbalta) 60 mg DAILY PO Last administered on 01/14/19at 08:21; Admin Dose 60 MG; Start 01/14/19 at 09:00 Mirtazapine (Remeron) 15 mg HS PO Last administered on 01/13/19at 20:53; Admin Dose 15 MG; Start 01/13/19 at 21:00 Sumatriptan Succinate (Imitrex) 50 mg BID PRN PO MIGRAINE HEADACHE; Start 01/13/19 at 18:30 Trazodone HCl (Desyrel) 50 mg QHS PO Last administered on 01/13/19at 20:53; Admin Dose 50 MG; Start 01/13/19 at 21:00 Zolpidem Tartrate (Ambien) 5 mg HS MAY REPEAT X 1 PRN PO INSOMNIA; Start 01/13/19 at 18:30 SUNG PRIETO MD Jan 14, 2019 08:49
--- NOTE | 2019-01-14 12:50 | CONS ---
Consultation Date/Type/Reason Admit Date/Time Jan 13, 2019 at 05:36 Initial Consult Date Date/Time of Note DATE: 01/14/19 TIME: 12:47 24 HR Interval Summary Free Text/Dictation S: 48 yo M POD#1 s/p L5-S1 ALIF w/ PSIF. No acute events over night. Tolerating clears. OOB w/ PT. O: Vital Signs Date Temp Pulse Resp B/P (MAP) Pulse Ox O2 O2 Flow FiO2 Time Delivery Rate 01/14/19 98.2 71 14 115/77 99 Nasal 07:30 (90) Cannula 01/13/19 2.0 20:15 Gen: AAOx3, NAD Spine: 4/5 b/l TA/GS/EHL/KE, +SILT L3-S1 Abdomen: mild distension, no TTP, dressings C/D/I Laboratory Tests Test 01/14/19 04:36 01/14/19 07:29 Hemoglobin 12.0 g/dl Hematocrit 36.9 % Sodium Level 141 mmol/L Potassium Level 4.4 mmol/L Chloride Level 103 mmol/L Carbon Dioxide Level 30 mmol/L Anion Gap 8 Blood Urea Nitrogen 13 mg/dl Creatinine 0.85 mg/dl Est Glomerular Filtrat Rate mL/min > 60 mL/min Glucose Level 128 mg/dl Calcium Level 9.3 mg/dl Lab Scanned Report REFERENCE LAB [id number] Current Medications Medications Dose Sig/Luisito Start Time Status Last (Trade) Ordered Route PRN Stop Time Admin Dose Reason Admin Verapamil 5 mg STK-MED 01/13/19 DC HCl ONCE .ROUTE 06:11 01/13/19 (Verapamil) 06:12 1,000 mcg STK-MED 01/13/19 DC Nitroglycerin ONCE .ROUTE 06:14 01/13/19 06:15 (Nitroglyceri n (Intracoronar y)) Gelatin 1 sponge STK-MED 01/13/19 DC 01/13/19 (Gelatin ONCE .ROUTE 06:55 01/13/19 06:55 1 Size 100 06:56 SPONGE Sponge) Thrombin 15,000 unit STK-MED 01/13/19 DC 01/13/19 (Thrombin-Jmi ONCE TP 06:55 01/13/19 06:55 15,000 ) 06:56 UNIT Bupivacaine 30 ml STK-MED 01/13/19 DC 01/13/19 HCl/ ONCE .ROUTE 06:55 01/13/19 06:55 30 ML Epinephrine 06:56 Bitart ([place] 0.5%/ Epi (Sdv)) Cefazolin 1 gm STK-MED 01/13/19 DC 01/13/19 Sodium ONCE .ROUTE 06:55 01/13/19 06:55 1 GM (Ancef) 06:56 Heparin 30,000 unit STK-MED 01/13/19 DC Sodium ONCE .ROUTE 06:56 01/13/19 (Porcine) 06:57 (Heparin (1000 Units/ml)) 0.2 mg PACU PRN 01/13/19 DC Hydromorphone IV MILD PAIN 07:30 01/13/19 HCl 1-3 19:00 (Dilaudid) 0.4 mg PACU PRN 01/13/19 DC Hydromorphone IV MOD PAIN 07:30 01/13/19 HCl 4-6 19:00 (Dilaudid) 0.6 mg PACU PRN 01/13/19 DC Hydromorphone IV SEVERE 07:30 01/13/19 HCl PAIN 7-10 19:00 (Dilaudid) Fentanyl 25 mcg PACU ORDER 01/13/19 DC (Sublimaze) PRN IV MILD 07:30 01/13/19 PAIN 1-3 19:00 Fentanyl 50 mcg PACU ORDER 01/13/19 DC 01/13/19 (Sublimaze) PRN IV MOD 07:30 01/13/19 13:10 50 MCG PAIN 4-6 19:00 Fentanyl 75 mcg PACU ORDER 01/13/19 DC (Sublimaze) PRN IV 07:30 01/13/19 SEVERE PAIN 19:00 7-10 Ondansetron 4 mg PACU ORDER 01/13/19 DC 01/13/19 HCl (Zofran PRN IV 07:30 01/13/19 13:10 4 MG Inj) NAUSEA/VOMITI 19:00 NG Meperidine 25 mg PACU ORDER 01/13/19 DC HCl PRN IV 07:30 01/13/19 (Demerol) .RIGORS 19:00 25 mg PACU ORDER 01/13/19 DC Diphenhydrami PRN IV 07:30 01/13/19 ne HCl .PRURITUS 19:00 (Benadryl) Propofol 20 ml @ ud STK-MED 01/13/19 DC ONCE .ROUTE 07:01/13/19 07:27 Rocuronium 50 mg STK-MED 01/13/19 DC [place] ONCE .ROUTE 07:01/13/19 (Zemuron) 07:27 Midazolam 2 mg STK-MED 01/13/19 DC HCl ONCE .ROUTE 07:01/13/19 (Versed) 07:27 Ondansetron 4 mg STK-MED 01/13/19 DC HCl (Zofran ONCE .ROUTE 07:01/13/19 Inj) 07:27 10 mg STK-MED 01/13/19 DC Metoclopramid ONCE .ROUTE 07:01/13/19 e HCl 07:27 (Reglan) Fentanyl 100 mcg STK-MED 01/13/19 DC (Sublimaze) ONCE .ROUTE 07:01/13/19 07:34 20 mg STK-MED 01/13/19 DC Dexamethasone ONCE .ROUTE 07:46 01/13/19 (Decadron) 07:47 Cefazolin 1 gm STK-MED 01/13/19 DC Sodium ONCE .ROUTE 08:02 01/13/19 (Ancef) 08:03 Rocuronium 50 mg STK-MED 01/13/19 DC [place] ONCE .ROUTE 08:15 01/13/19 (Zemuron) 08:16 2 mg STK-MED 01/13/19 DC Hydromorphone ONCE .ROUTE 08:28 01/13/19 HCl 08:29 (Dilaudid) Ropivacaine 30 ml STK-MED 01/13/19 DC (Naropin ONCE .ROUTE 09:33 01/13/19 0.5%) 09:34 Bupivacaine 30 ml STK-MED 01/13/19 DC 01/13/19 HCl/ ONCE .ROUTE 10:53 01/13/19 10:53 30 ML Epinephrine 10:54 Bitart ([place] 0.5%/ Epi (Sdv)) Fentanyl 100 mcg STK-MED 01/13/19 DC (Sublimaze) ONCE .ROUTE 11:00 01/13/19 11:01 1 tab Q4H PRN 01/13/19 Acetaminophen PO .PAIN 1-5 13:00 / Hydrocodone Bitart ([place] (5/325)) 2 tab Q4H PRN 01/13/19 Acetaminophen PO .PAIN 13:00 / 6-10 Hydrocodone Bitart ([place] (5/325)) Cefazolin 50 ml @ Q6 IVPB 01/13/19 DC 01/14/19 Sodium 100 mls/hr 18:00 01/14/19 11:49 100 12:29 MLS/HR 10 mg Q4H PRN 01/13/19 Prochlorperaz PO 13:00 ine NAUSEA/VOMITI (Compazine) NG Ondansetron 4 mg Q6H PRN 01/13/19 HCl (Zofran IV 13:00 Inj) NAUSEA/VOMITI NG Al 15 ml Q4H PRN 01/13/19 Hydrox/Mg PO 13:00 Hydrox/Simeth .CONSTIPATION icone (Mag-Al Plus) Docusate 100 mg BID PO 01/14/19 01/14/19 Sodium 09:00 08:21 100 MG (Colace) 650 mg Q4H PRN 01/13/19 Acetaminophen PO TEMP 13:00 (Tylenol GREATER THAN Tab) 101F OR CLARKE IV Flush 3 ml PER 01/13/19 (NS 3 ml) PROTOCOL IV 13:00 Q4PCA IV 01/13/19 01/14/19 Hydromorphone 13:00 06:12 6 MG HCl (Dilaudid COATING MIXER SUPERVISOR) Naloxone 0.2 mg Q2M PRN 01/13/19 HCl IV RR 8 13:00 (Narcan) BREATHS/MIN OR LESS 100 mg STK-MED 01/13/19 DC Succinylcholi ONCE IV 12:45 01/13/19 ne Chloride 12:46 (Anectine Syringe) 0.2 mg PACU PRN 01/13/19 DC Hydromorphone IV MILD PAIN 13:30 01/13/19 HCl 1-3 20:00 (Dilaudid) 0.4 mg PACU PRN 01/13/19 DC Hydromorphone IV MOD PAIN 13:30 01/13/19 HCl 4-6 20:00 (Dilaudid) Ketorolac 15 mg PACU ORDER 01/13/19 DC Tromethamine PRN IV FOR 13:30 01/13/19 (Toradol) PAIN AFTER IV 20:00 NARCOTIC MED Ondansetron 4 mg PACU ORDER 01/13/19 DC HCl (Zofran PRN IV 13:30 01/13/19 Inj) NAUSEA/VOMITI 20:00 NG 1 tab Q4H PRN 01/13/19 Acetaminophen PO HEADACHE 18:30 / Butalbital/ Caffeine (Fioricet) Duloxetine 60 mg DAILY PO 01/14/19 01/14/19 HCl 09:00 08:21 60 MG (Cymbalta) Mirtazapine 15 mg HS PO 01/13/19 01/13/19 (Remeron) 21:00 20:53 15 MG Sumatriptan 50 mg BID PRN 01/13/19 Succinate PO MIGRAINE 18:30 (Imitrex) HEADACHE Trazodone 50 mg QHS PO 01/13/19 01/13/19 HCl 21:00 20:53 50 MG (Desyrel) Zolpidem 5 mg HS 01/13/19 Tartrate REPEAT X 1 18:30 (Ambien) PRN PO INSOMNIA A/P:48 yo M POD#1 s/p L5-S1 ALIF w/ PSIF 1. OOB w/ PT 2. F/U labs 3. D/C [place]art[place] once cleared by PT 4. advance diet to regular once passing gas 5. D/C COATING MIXER SUPERVISOR and start [place] Exam/Review of Systems Exam Vitals Vital Signs Date Temp Pulse Resp B/P (MAP) Pulse Ox O2 O2 Flow FiO2 Time Delivery Rate 01/14/19 98.2 71 14 115/77 99 Nasal 07:30 (90) Cannula 01/13/19 2.0 20:15 Intake and Output 01/13/19 01/13/19 01/14/19 1515:00 23:00 07:00 IntakeIntake Total 1760 ml 175 ml 800 ml OutputOutput Total 900 ml 3600 ml BalanceBalance 860 ml 175 ml -2800 ml Results Result Diagram: 01/14/19 0436 01/14/19 0436 Results 24hrs Laboratory Tests Test 01/14/19 04:36 01/14/19 07:29 Hemoglobin 12.0 L Hematocrit 36.9 L Sodium Level 141 Potassium Level 4.4 Chloride Level 103 Carbon Dioxide Level 30 Anion Gap 8 Blood Urea Nitrogen 13 Creatinine 0.85 Est Glomerular Filtrat Rate mL/min > 60 Glucose Level 128 Calcium Level 9.3 Lab Scanned Report REFERENCE LAB Medications Medication Current Medications Acetaminophen/ Hydrocodone Bitart ([place] (5/325)) 1 tab Q4H PRN PO .PAIN 1-5; Start 01/13/19 at 13:00 Acetaminophen/ Hydrocodone Bitart ([place] (5/325)) 2 tab Q4H PRN PO .PAIN 6-10; Start 01/13/19 at 13:00 Prochlorperazine (Compazine) 10 mg Q4H PRN PO NAUSEA/VOMITING; Start 01/13/19 at 13:00 Ondansetron HCl (Zofran Inj) 4 mg Q6H PRN IV NAUSEA/VOMITING; Start 01/13/19 at 13:00 Al Hydrox/Mg Hydrox/Simethicone (Mag-Al Plus) 15 ml Q4H PRN PO .CONSTIPATION; Start 01/13/19 at 13:00 Docusate Sodium (Colace) 100 mg BID PO Last administered on 01/14/19at 08:21; Admin Dose 100 MG; Start 01/14/19 at 09:00 Acetaminophen (Tylenol Tab) 650 mg Q4H PRN PO TEMP GREATER THAN 101F OR CLARKE; Start 01/13/19 at 13:00 IV Flush (NS 3 ml) 3 ml PER PROTOCOL IV ; Start 01/13/19 at 13:00 Hydromorphone HCl (Dilaudid [employer]) Q4PCA IV Last administered on 01/14/19at 06:12; Admin Dose 6 MG; Start 01/13/19 at 13:00 Naloxone HCl (Narcan) 0.2 mg Q2M PRN IV RR 8 BREATHS/MIN OR LESS; Start 01/13/19 at 13:00 Acetaminophen/ Butalbital/ Caffeine (Fioricet) 1 tab Q4H PRN PO HEADACHE; Start 01/13/19 at 18:30 Duloxetine HCl (Cymbalta) 60 mg DAILY PO Last administered on 01/14/19at 08:21; Admin Dose 60 MG; Start 01/14/19 at 09:00 Mirtazapine (Remeron) 15 mg HS PO Last administered on 01/13/19at 20:53; Admin Dose 15 MG; Start 01/13/19 at 21:00 Sumatriptan Succinate (Imitrex) 50 mg BID PRN PO MIGRAINE HEADACHE; Start 01/13/19 at 18:30 Trazodone HCl (Desyrel) 50 mg QHS PO Last administered on 01/13/19at 20:53; Admin Dose 50 MG; Start 01/13/19 at 21:00 Zolpidem Tartrate (Ambien) 5 mg HS MAY REPEAT X 1 PRN PO INSOMNIA; Start 9 at 18:30 VIRGINIA TRAORE MD Jan 14, 2019 12:50
[2019-01-14] MEDS: HYDROCODONE/APAP (5/325) TAB PO PRN ×3 (13:13→22:05)
[2019-01-14 14:09] VITALS: BP 110/74; PULSE 86; RESP 14
[2019-01-14] MEDS: HYDROmorphONE 0.5 MG/0.5 ML SYG IV PRN ×2 (18:47→23:44)
[2019-01-14 20:28] VITALS: BP 116/76; PULSE 97; RESP 18
[2019-01-14] MEDS: MIRTAZAPINE 15 MG TAB PO SCH (20:43)
[2019-01-14] MEDS: traZODone 50 MG TAB PO SCH (20:43)
[2019-01-15 02:03] VITALS: BP 93/51; PULSE 91; RESP 18
[2019-01-15] MEDS: HYDROCODONE/APAP (5/325) TAB PO PRN ×5 (02:13→18:42)
[2019-01-15 05:23] VITALS: BP 112/71; PULSE 73; RESP 19
[2019-01-15 07:06] VITALS: BP 101/65; PULSE 77; RESP 18
[2019-01-15] MEDS: HYDROmorphONE 0.5 MG/0.5 ML SYG IV PRN ×3 (07:50→21:05)
--- NOTE | 2019-01-15 08:20 | CONS ---
Assessment/Plan Assessment/Plan Assessment/Plan (Daily) 1. Doing well post op lumbar back surgery 2. Ileus resolving 3. Mobilizing quickly and asa to be added tomm per ortho 4. Labs rev Consultation Date/Type/Reason Admit Date/Time Jan 13, 2019 at 05:36 Initial Consult Date Date/Time of Note DATE: 01/15/19 TIME: 08:18 Detailed Summary Respiratory: No cough, No shortness of breath Cardiovascular: No chest pain Gastrointestinal: pain (mild to mod) Genitourinary: no complaints Musculoskeletal: back pain (moderate) Exam/Review of Systems Exam Vitals Vital Signs Date Temp Pulse Resp B/P (MAP) Pulse Ox O2 O2 Flow FiO2 Time Delivery Rate 01/15/19 98.3 77 18 101/65 98 Room Air 07:06 (77) 01/13/19 2.0 20:15 Intake and Output 01/14/19 01/14/19 01/15/19 1515:00 23:00 07:00 IntakeIntake Total 500 ml 325 ml 400 ml OutputOutput Total 450 ml BalanceBalance 500 ml 325 ml -50 ml Neck: No jvd Respiratory: clear to auscultation Cardiovascular: regular rate and rhythm Gastrointestinal: distended (mild), tender (mild, lower abd) Extremities: No edema, No tenderness Results Result Diagram: 01/15/19 0429 01/15/19 0429 Results 24hrs Laboratory Tests Test 01/15/19 04:29 White Blood Count 8.2 Red Blood Count 4.32 L Hemoglobin 11.9 L Hematocrit 37.1 L Mean Corpuscular Volume 85.9 Mean Corpuscular Hemoglobin 27.5 L Mean Corpuscular Hemoglobin Concent 32.1 Red Cell Distribution Width 14.6 H Platelet Count 308 Mean Platelet Volume 9.8 Immature Granulocytes % 0.200 Neutrophils % 63.8 Lymphocytes % 25.3 Monocytes % 9.9 Eosinophils % 0.4 Basophils % 0.4 Nucleated Red Blood Cells % 0.0 Immature Granulocytes # 0.020 Neutrophils # 5.2 Lymphocytes # 2.1 Monocytes # 0.8 Eosinophils # 0.0 Basophils # 0.0 Nucleated Red Blood Cells # 0.0 Sodium Level 139 Potassium Level 4.3 Chloride Level 99 Carbon Dioxide Level 33 H Anion Gap 7 Blood Urea Nitrogen 13 Creatinine 0.97 Est Glomerular Filtrat Rate mL/min > 60 Glucose Level 112 Calcium Level 8.8 Phosphorus Level 3.7 Magnesium Level 1.7 Medications Medication Current Medications Acetaminophen/ Hydrocodone Bitart ([place] (5/325)) 1 tab Q4H PRN PO .PAIN 1-5; Start 01/13/19 at 13:00 Acetaminophen/ Hydrocodone Bitart ([place] (5/325)) 2 tab Q4H PRN PO .PAIN 6-10 Last administered on 01/15/19at 06:32; Admin Dose 2 TAB; Start 01/13/19 at 13:00 Prochlorperazine (Compazine) 10 mg Q4H PRN PO NAUSEA/VOMITING; Start 01/13/19 at 13:00 Ondansetron HCl (Zofran Inj) 4 mg Q6H PRN IV NAUSEA/VOMITING; Start 01/13/19 at 13:00 Al Hydrox/Mg Hydrox/Simethicone (Mag-Al Plus) 15 ml Q4H PRN PO .CONSTIPATION; Start 01/13/19 at 13:00 Docusate Sodium (Colace) 100 mg BID PO Last administered on 01/14/19at 20:43; Admin Dose 100 MG; Start 01/14/19 at 09:00 Acetaminophen (Tylenol Tab) 650 mg Q4H PRN PO TEMP GREATER THAN 101F OR CLARKE; Start 01/13/19 at 13:00 IV Flush (NS 3 ml) 3 ml PER PROTOCOL IV ; Start 01/13/19 at 13:00 Naloxone HCl (Narcan) 0.2 mg Q2M PRN IV RR 8 BREATHS/MIN OR LESS; Start 01/13/19 at 13:00 Acetaminophen/ Butalbital/ Caffeine (Fioricet) 1 tab Q4H PRN PO HEADACHE; Start 01/13/19 at 18:30 Duloxetine HCl (Cymbalta) 60 mg DAILY PO Last administered on 01/14/19at 08:21; Admin Dose 60 MG; Start 01/14/19 at 09:00 Mirtazapine (Remeron) 15 mg HS PO Last administered on 01/14/19at 20:43; Admin Dose 15 MG; Start 01/13/19 at 21:00 Sumatriptan Succinate (Imitrex) 50 mg BID PRN PO MIGRAINE HEADACHE; Start 01/13/19 at 18:30 Trazodone HCl (Desyrel) 50 mg QHS PO Last administered on 01/14/19at 20:43; Admin Dose 50 MG; Start 01/13/19 at 21:00 Zolpidem Tartrate (Ambien) 5 mg HS MAY REPEAT X 1 PRN PO INSOMNIA; Start 01/13/19 at 18:30 Hydromorphone HCl (Dilaudid) 0.5 mg Q3H PRN IV SEVERE PAIN LEVEL 7-10 Last administered on 01/15/19at 07:50; Admin Dose 0.5 MG; Start 01/14/19 at 13:00 SUNG PRIETO MD Jan 15, 2019 08:20
[2019-01-15] MEDS: DULOXETINE 30 MG CAP DR PO SCH (09:27)
[2019-01-15] MEDS: DOCUSATE SODIUM 100 MG CAP PO SCH ×2 (09:28→21:07)
[2019-01-15 13:50] VITALS: BP 122/75; PULSE 98; RESP 18
[2019-01-15 19:35] VITALS: BP 124/78; PULSE 80; RESP 18
[2019-01-15] MEDS: traZODone 50 MG TAB PO SCH (21:07)
[2019-01-15] MEDS: MIRTAZAPINE 15 MG TAB PO SCH (21:08)
[2019-01-16] MEDS: HYDROCODONE/APAP (5/325) TAB PO PRN ×3 (00:40→09:31)
[2019-01-16 02:15] VITALS: BP 101/55; PULSE 80; RESP 18
[2019-01-16 08:06] VITALS: BP 119/77; PULSE 71; RESP 18
--- NOTE | 2019-01-16 08:13 | CONS ---
Assessment/Plan Assessment/Plan Assessment/Plan (Daily) 1. Doing well post op lumbar back surgery 2. Start ASA when ok with ortho 3. Mood disorder is stable 4. Labs rev Consultation Date/Type/Reason Admit Date/Time Jan 13, 2019 at 05:36 Initial Consult Date Date/Time of Note DATE: 01/16/19 TIME: 08:12 Detailed Summary Respiratory: No cough, No shortness of breath Cardiovascular: No no complaints Gastrointestinal: other (mild abd discomfort); No nausea, No vomiting Genitourinary: no complaints Exam/Review of Systems Exam Vitals Vital Signs Date Temp Pulse Resp B/P (MAP) Pulse Ox O2 O2 Flow FiO2 Time Delivery Rate 01/16/19 98.5 71 18 119/77 92 08:06 (91) 01/15/19 Room Air 13:50 01/13/19 2.0 20:15 Intake and Output 01/15/19 01/15/19 01/16/19 1515:00 23:00 07:00 IntakeIntake Total 1000 ml 640 ml OutputOutput Total 200 ml BalanceBalance 800 ml 640 ml Neck: No jvd Respiratory: clear to auscultation Cardiovascular: regular rate and rhythm Gastrointestinal: tender (mild) Extremities: No calf tenderness, No edema Results Result Diagram: 01/16/19 0432 01/16/19 0431 Results 24hrs Laboratory Tests Test 01/16/19 04:31 01/16/19 04:32 Sodium Level 141 Potassium Level 4.0 Chloride Level 102 Carbon Dioxide Level 33 H Anion Gap 6 Blood Urea Nitrogen 10 Creatinine 0.86 Est Glomerular Filtrat Rate mL/min > 60 Glucose Level 113 Calcium Level 8.8 Phosphorus Level 3.7 Magnesium Level 2.0 White Blood Count 8.4 Red Blood Count 4.40 L Hemoglobin 11.9 L Hematocrit 37.7 L Mean Corpuscular Volume 85.7 Mean Corpuscular Hemoglobin 27.0 L Mean Corpuscular Hemoglobin Concent 31.6 L Red Cell Distribution Width 14.3 Platelet Count 331 Mean Platelet Volume 10.0 Immature Granulocytes % 0.400 Neutrophils % 56.6 Lymphocytes % 31.8 Monocytes % 9.3 Eosinophils % 1.4 Basophils % 0.5 Nucleated Red Blood Cells % 0.0 Immature Granulocytes # 0.030 Neutrophils # 4.8 Lymphocytes # 2.7 Monocytes # 0.8 Eosinophils # 0.1 Basophils # 0.0 Nucleated Red Blood Cells # 0.0 Medications Medication Current Medications Acetaminophen/ Hydrocodone Bitart ([place] (5/325)) 1 tab Q4H PRN PO .PAIN 1-5; Start 01/13/19 at 13:00 Acetaminophen/ Hydrocodone Bitart ([place] (5/325)) 2 tab Q4H PRN PO .PAIN 6-10 Last administered on 01/16/19at 05:07; Admin Dose 2 TAB; Start 01/13/19 at 13:00 Prochlorperazine (Compazine) 10 mg Q4H PRN PO NAUSEA/VOMITING; Start 01/13/19 at 13:00 Ondansetron HCl (Zofran Inj) 4 mg Q6H PRN IV NAUSEA/VOMITING; Start 01/13/19 at 13:00 Al Hydrox/Mg Hydrox/Simethicone (Mag-Al Plus) 15 ml Q4H PRN PO .CONSTIPATION; Start 01/13/19 at 13:00 Docusate Sodium (Colace) 100 mg BID PO Last administered on 01/15/19at 21:07; Admin Dose 100 MG; Start 01/14/19 at 09:00 Acetaminophen (Tylenol Tab) 650 mg Q4H PRN PO TEMP GREATER THAN 101F OR CLARKE; Start 01/13/19 at 13:00 IV Flush (NS 3 ml) 3 ml PER PROTOCOL IV ; Start 01/13/19 at 13:00 Naloxone HCl (Narcan) 0.2 mg Q2M PRN IV RR 8 BREATHS/MIN OR LESS; Start 01/13/19 at 13:00 Acetaminophen/ Butalbital/ Caffeine (Fioricet) 1 tab Q4H PRN PO HEADACHE; Start 01/13/19 at 18:30 Duloxetine HCl (Cymbalta) 60 mg DAILY PO Last administered on 01/15/19at 09:27; Admin Dose 60 MG; Start 01/14/19 at 09:00 Mirtazapine (Remeron) 15 mg HS PO Last administered on 01/15/19at 21:08; Admin Dose 15 MG; Start 01/13/19 at 21:00 Sumatriptan Succinate (Imitrex) 50 mg BID PRN PO MIGRAINE HEADACHE; Start 01/13/19 at 18:30 Trazodone HCl (Desyrel) 50 mg QHS PO Last administered on 01/15/19at 21:07; Admin Dose 50 MG; Start 01/13/19 at 21:00 Zolpidem Tartrate (Ambien) 5 mg HS MAY REPEAT X 1 PRN PO INSOMNIA; Start 01/13/19 at 18:30 Hydromorphone HCl (Dilaudid) 0.5 mg Q3H PRN IV SEVERE PAIN LEVEL 7-10 Last administered on 01/15/19at 21:05; Admin Dose 0.5 MG; Start 01/14/19 at 13:00 SUNG PRIETO MD Jan 16, 2019 08:13
[2019-01-16] MEDS: DOCUSATE SODIUM 100 MG CAP PO SCH (08:26)
[2019-01-16] MEDS: DULOXETINE 30 MG CAP DR PO SCH (08:26)
--- NOTE | 2019-01-16 12:21 | PDOCDIS ---
Discharge Instructions CONDITION [id number] Patient Condition: [id number] Good HOME CARE INSTRUCTIONS: [id number] Diet Instructions: [id number] Regular ACTIVITY: [id number] Activity Restrictions: [id number] Slowly Increase Activity Rest between Activity Avoid heavy lifting Do not Drive Do not operate Machinery [id number] Bathing Restrictions: [id number] Shower FOLLOW UP/APPOINTMENTS Follow-up Plan Follow-up with Dr. Traore in 2 weeks VIRGINIA TRAORE MD Jan 16, 2019 12:20
--- NOTE | 2019-01-16 12:23 | CONS ---
Consultation Date/Type/Reason Admit Date/Time Jan 13, 2019 at 05:36 Initial Consult Date Date/Time of Note DATE: 01/16/19 TIME: 12:21 24 HR Interval Summary Free Text/Dictation Patient doing well. Pain controlled w/ PO [place]. Passing gas and tolerating regular diet. He has been cleared by physical therapy. Will start Asprin 325 mg PO daily today given hx of DVT. Will d/c and have him follow-up in 2 weeks at our office. Exam/Review of Systems Exam Vitals Vital Signs Date Temp Pulse Resp B/P (MAP) Pulse Ox O2 O2 Flow FiO2 Time Delivery Rate 01/16/19 98.5 71 18 119/77 92 08:06 (91) 01/15/19 Room Air 13:50 01/13/19 2.0 20:15 Intake and Output 01/15/19 01/15/19 01/16/19 1414:59 22:59 06:59 IntakeIntake Total 1000 ml 640 ml OutputOutput Total 200 ml BalanceBalance 800 ml 640 ml Results Result Diagram: 01/16/19 0432 01/16/19 0431 Results 24hrs Laboratory Tests Test 01/16/19 04:31 01/16/19 04:32 Sodium Level 141 Potassium Level 4.0 Chloride Level 102 Carbon Dioxide Level 33 H Anion Gap 6 Blood Urea Nitrogen 10 Creatinine 0.86 Est Glomerular Filtrat Rate mL/min > 60 Glucose Level 113 Calcium Level 8.8 Phosphorus Level 3.7 Magnesium Level 2.0 White Blood Count 8.4 Red Blood Count 4.40 L Hemoglobin 11.9 L Hematocrit 37.7 L Mean Corpuscular Volume 85.7 Mean Corpuscular Hemoglobin 27.0 L Mean Corpuscular Hemoglobin Concent 31.6 L Red Cell Distribution Width 14.3 Platelet Count 331 Mean Platelet Volume 10.0 Immature Granulocytes % 0.400 Neutrophils % 56.6 Lymphocytes % 31.8 Monocytes % 9.3 Eosinophils % 1.4 Basophils % 0.5 Nucleated Red Blood Cells % 0.0 Immature Granulocytes # 0.030 Neutrophils # 4.8 Lymphocytes # 2.7 Monocytes # 0.8 Eosinophils # 0.1 Basophils # 0.0 Nucleated Red Blood Cells # 0.0 Medications Medication Current Medications Acetaminophen/ Hydrocodone Bitart ([place] (5/325)) 1 tab Q4H PRN PO .PAIN 1-5; Start 01/13/19 at 13:00 Acetaminophen/ Hydrocodone Bitart ([place] (5/325)) 2 tab Q4H PRN PO .PAIN 6-10 Last administered on 01/16/19at 09:31; Admin Dose 2 TAB; Start 01/13/19 at 13:00 Prochlorperazine (Compazine) 10 mg Q4H PRN PO NAUSEA/VOMITING; Start 01/13/19 at 13:00 Ondansetron HCl (Zofran Inj) 4 mg Q6H PRN IV NAUSEA/VOMITING; Start 01/13/19 at 13:00 Al Hydrox/Mg Hydrox/Simethicone (Mag-Al Plus) 15 ml Q4H PRN PO .CONSTIPATION; Start 01/13/19 at 13:00 Docusate Sodium (Colace) 100 mg BID PO Last administered on 01/16/19at 08:26; Admin Dose 100 MG; Start 01/14/19 at 09:00 Acetaminophen (Tylenol Tab) 650 mg Q4H PRN PO TEMP GREATER THAN 101F OR CLARKE; Start 01/13/19 at 13:00 IV Flush (NS 3 ml) 3 ml PER PROTOCOL IV ; Start 01/13/19 at 13:00 Naloxone HCl (Narcan) 0.2 mg Q2M PRN IV RR 8 BREATHS/MIN OR LESS; Start 01/13/19 at 13:00 Acetaminophen/ Butalbital/ Caffeine (Fioricet) 1 tab Q4H PRN PO HEADACHE; Start 01/13/19 at 18:30 Duloxetine HCl (Cymbalta) 60 mg DAILY PO Last administered on 01/16/19at 08:26; Admin Dose 60 MG; Start 01/14/19 at 09:00 Mirtazapine (Remeron) 15 mg HS PO Last administered on 01/15/19at 21:08; Admin Dose 15 MG; Start 01/13/19 at 21:00 Sumatriptan Succinate (Imitrex) 50 mg BID PRN PO MIGRAINE HEADACHE; Start 01/13/19 at 18:30 Trazodone HCl (Desyrel) 50 mg QHS PO Last administered on 01/15/19at 21:07; Admin Dose 50 MG; Start 01/13/19 at 21:00 Zolpidem Tartrate (Ambien) 5 mg HS MAY REPEAT X 1 PRN PO INSOMNIA; Start 01/13 at 18:30 Hydromorphone HCl (Dilaudid) 0.5 mg Q3H PRN IV SEVERE PAIN LEVEL 7-10 Last administered on 01/15/19at 21:05; Admin Dose 0.5 MG; Start 01/14/19 at 13:00 VIRGINIA TRAORE MD Jan 16, 2019 12:23
== END 2019-01-16 13:21 | disposition home or self-care (01) | DRG 454 ==
LOC: REC 05:36 → MS1 15:08
PROVIDERS: ADMIT Orthopaedic Surgery; ATTEND Orthopaedic Surgery
PROC: 0SG30K1 Fusion of Lumbosacral Joint with Nonautologous Tissue Substitute, Posterior Approach, Posterior Column, Open Approach (ICD-10-PCS; 2019-01-13)
PROC: 0SB40ZZ Excision of Lumbosacral Disc, Open Approach (ICD-10-PCS; 2019-01-13)
PROC: 3E0U0GB Introduction of Recombinant Bone Morphogenetic Protein into Joints, Open Approach (ICD-10-PCS; 2019-01-13)
PROC: 4A11X4G Monitoring of Peripheral Nervous Electrical Activity, Intraoperative, External Approach (ICD-10-PCS; 2019-01-13)
PROC: 0SG30A0 Fusion of Lumbosacral Joint with Interbody Fusion Device, Anterior Approach, Anterior Column, Open Approach (ICD-10-PCS; principal; 2019-01-13 07:30)
DX: M43.17 Spondylolisthesis, lumbosacral region (principal); K56.7 Ileus, unspecified; M48.07 Spinal stenosis, lumbosacral region; M54.10 Radiculopathy, site unspecified; E66.9 Obesity, unspecified; F39 Unspecified mood [affective] disorder; Z68.34 Body mass index [BMI] 34.0-34.9, adult
CPT/HCPCS: 72110; 80048; 83735; 84100; 85014; 85018; 85025; 86850; 86900; 86901; 86920; 87086; 88304; 97110; 97116; 97163; 97530; C1762; J0690; J1100; J1170; J1644; J2250; J2405; J2765; J2795; J3010; L0636; L8699